=== PATIENT | female | born 1990 | race Hispanic/Latino ===

== ENCOUNTER 2016-09-16 01:15 | Emergency (ER) | payer SELFPAY ==
[2016-09-16 05:47] VITALS: BP 103/55
[2016-09-16] MEDS ORDERED: CLEOCIN PO ONE (07:46)
[2016-09-16] MEDS ORDERED: NORCO 5/325 PO ONE (07:46)
[2016-09-16] MEDS ORDERED: BOOSTRIX IM ONE (07:47)
[2016-09-16] MEDS ORDERED: THERMAZENE 50 GRAM TP ONE (08:00)
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
== END 2016-09-16 09:17 | disposition home or self-care (01) ==
LOC: ED 01:15
DX: T24.201A Burn of second degree of unspecified site of right lower limb, except ankle and foot, initial encounter (principal); F17.200 Nicotine dependence, unspecified, uncomplicated; X18.XXXA Contact with other hot metals, initial encounter; Y93.89 Activity, other specified; Y92.89 Other specified places as the place of occurrence of the external cause; Y99.8 Other external cause status
CPT/HCPCS: 90471; 90715